=== PATIENT | female | born 1985 | race Caucasian/White ===

== ENCOUNTER 2017-06-19 20:25 | Emergency (ER) | payer OTHER ==
[2017-06-19 20:54] VITALS: BP 112/73
[2017-06-19] MEDS ORDERED: Erythromycin OPTH OINT* APPLIC OINT RIGHT EYE ONE (21:09)
--- NOTE | 2017-06-19 21:10 | UC ---
Eye Complaint HPI - HPI Summary HPI Summary: 31 yo WF c/o right upper lid x 5 days, tried warm compresses and drained some pus - History of Current Complaint Chief Complaint: UCEye Stated Complaint: EYE COMPLAINT Time Seen by Provider: 06/19/17 20:42 Hx Obtained From: Patient Hx Last Menstrual Period: 11/26/15 Onset/Duration: Lasting Days Timing: Minutes Pain Intensity: 5 Location of Injury: Eye Lid (upper) Aggravating Factor(s): Nothing Alleviating Factor(s): Nothing Associated Signs And Symptoms: Positive: Negative, Drainage (Purulent) - Allergies/Home Medications Allergies/Adverse Reactions: Allergies Allergy/AdvReac Type Severity Reaction Status Date / Time cephalexin [From Keflex] Allergy Itching Verified 06/19/17 20:55 latex Allergy Itching Verified 06/19/17 20:55 nitrofurantoin Allergy Tinnitus Verified 06/19/17 20:55 [From Macrobid] Home Medications: Home Medications Dextroamphetamine/Amphetamine [Adderall 10 mg-] 1 tab PO DAILY 06/19/17 [ History Confirmed 06/19/17] PMH/Surg Hx/FS Hx/Imm Hx Previously Healthy: Yes Other History Of: Negative For: Anticoagulant Therapy - Surgical History Surgical History: Yes Surgery Procedure, Year, and Place: nose surgery deviated septum - Family History Known Family History: Positive: None - Nothing known - "my family doesn't talk to me" Negative: Hypertension, Seizure Disorder - Social History Alcohol Use: Rare Substance Use Type: None Smoking Status (MU): Never Smoked Tobacco - Immunization History Most Recent Influenza Vaccination: 12/28/13 Most Recent Tetanus Shot: 02/22/14 Most Recent Pneumonia Vaccination: n/a Review of Systems Constitutional: Negative Skin: Negative Eyes: Other - right upper lid stye ENT: Negative Respiratory: Negative Cardiovascular: Negative Gastrointestinal: Negative Genitourinary: Negative Motor: Negative Neurovascular: Negative Musculoskeletal: Negative Neurological: Negative Psychological: Negative All Other Systems Reviewed And Are Negative: Yes Physical Exam Triage Information Reviewed: Yes Appearance: Well-Appearing Vital Signs: Initial Vital Signs Temp 36.6 C 06/19/17 20:51 Pulse 82 06/19/17 20:51 Resp 18 06/19/17 20:51 BP 112/73 06/19/17 20:51 Pulse Ox 100 06/19/17 20:51 Eye Exam: Normal ENT: Positive: Other - right upper lid internal stye Dental Exam: Normal Neck exam: Normal Neck: Positive: 1 Respiratory Exam: Normal Cardiovascular Exam: Normal Abdominal Exam: Normal Musculoskeletal Exam: Normal Neurological Exam: Normal Psychological Exam: Normal Skin Exam: Normal Eye Complaint Course/Dx - Differential Dx/Diagnosis Provider Diagnoses: right upper lid internal stye Discharge - Sign-Out/Discharge Documenting (check all that apply): Discharge - Discharge Plan Condition: Stable Disposition: HOME Prescriptions: Erythromycin OPTH OINT* [Erythromycin 0.5% OPTH OINT*] 1 applic BOTH EYES TID 7 Days #1 ophth.oint Patient Education Materials: [place] (ED) Referrals: Luis Angel Beckford MD [Primary Care Provider] - Additional Instructions: please apply antibiotic ointment to right eye three times daily x 7 days, continue warm compresses - Billing Disposition and Condition Condition: STABLE Disposition: HOME
[2017-06-20] MEDS ORDERED: Erythromycin TOPICAL GEL* 30 GM TUBE TOPICAL SCH (09:00)
== END 2017-06-19 21:18 | disposition home or self-care (01) ==
LOC: UCEAST 20:25
DX: H00.021 Hordeolum internum right upper eyelid (principal); Z88.1 Allergy status to other antibiotic agents; Z91.040 Latex allergy status
CPT/HCPCS: 99201; A9270-GY; G0463

== ENCOUNTER 2019-01-01 14:29 | Emergency (ER) | payer OTHER ==
--- NOTE | 2019-01-01 14:51 | UC ---
Abdominal Pain Female HPI - HPI Summary HPI Summary: The pt is a 33 yo female with intermittent left pelvic pain x 1 week For 6 mos has had irregular periods she stopped her BCPs over a month ago no UTI symptoms No vaginal d/c or itch no f/c no n/v/d - History of Current Complaint Chief Complaint: UCAbdominalPain Stated Complaint: LEFT SIDE PAIN Time Seen by Provider: 01/01/19 14:37 Hx Obtained From: Patient Hx Last Menstrual Period: 49 days ago Onset/Duration: Gradual Onset, Lasting Days Timing: Intermittent Episodes Lasting: - up to an hour Severity Initially: Severe - at times Pain Intensity: 4 - currently Pain Scale Used: 0-10 Numeric Location: Discrete At: LLQ Radiates: No Character: Sharp Aggravating Factor(s): Nothing Alleviating Factor(s): Nothing Associated Signs and Symptoms: Positive: Negative Female Torso: 1 - pain Allergies/Adverse Reactions: Allergies Allergy/AdvReac Type Severity Reaction Status Date / Time cephalexin [From Keflex] Allergy Itching Verified 01/01/19 14:42 clonidine Allergy Rash Verified 01/01/19 14:43 latex Allergy Itching Verified 01/01/19 14:42 nitrofurantoin Allergy Tinnitus Verified 01/01/19 14:42 [From Macrobid] Home Medications: Home Medications Dextroamphetamine/Amphetamine [Dextroamp-Amphet ER 15 mg Cap] 15 mg PO BID 01/01 [History Confirmed 01/01/19] Escitalopram Oxalate [Lexapro 10 mg] 10 mg PO DAILY 01/01/19 [History Confirmed 01/01/19] PMH/Surg Hx/FS Hx/Imm Hx Previously Healthy: Yes Other History Of: Negative For: Anticoagulant Therapy - Surgical History Surgical History: Yes Surgery Procedure, Year, and Place: nose surgery deviated septum - Family History Known Family History: Positive: None - Nothing known - "my family doesn't talk to me", Non-Contributory Negative: Hypertension, Seizure Disorder - Social History Alcohol Use: None Substance Use Type: None Smoking Status (MU): Never Smoked Tobacco - Immunization History Most Recent Influenza Vaccination: 12/28/13 Most Recent Tetanus Shot: 02/22/14 Most Recent Pneumonia Vaccination: n/a Review of Systems All Other Systems Reviewed And Are Negative: Yes Constitutional: Positive: Negative Skin: Positive: Negative Eyes: Positive: Negative ENT: Positive: Negative Respiratory: Positive: Negative Cardiovascular: Positive: Negative Gastrointestinal: Positive: Negative Genitourinary: Positive: Negative Motor: Positive: Negative Neurovascular: Positive: Negative Musculoskeletal: Positive: Negative Neurological: Positive: Negative Psychological: Positive: Negative Physical Exam Triage Information Reviewed: Yes Appearance: Well-Appearing, No Pain Distress, Well-Nourished Vital Signs: Initial Vital Signs Temp 98.7 F 01/01/19 14:36 Pulse 103 01/01/19 14:36 Resp 16 01/01/19 14:36 BP 135/89 01/01/19 14:36 Pulse Ox 100 01/01/19 14:36 Vital Signs Reviewed: Yes Eyes: Positive: Conjunctiva Clear ENT: Positive: Hearing grossly normal, Pharynx normal. Negative: Nasal congestion, Nasal drainage, Tonsillar swelling, Tonsillar exudate, Hoarse voice Neck: Positive: Supple, Nontender, No Lymphadenopathy Respiratory: Positive: Lungs clear, Normal breath sounds, No respiratory distress, No accessory muscle use Cardiovascular: Positive: RRR, No Murmur Abdomen Description: Positive: Nontender, No Organomegaly, Bruit. Negative: CVA Tenderness (R), CVA Tenderness (L) Bowel Sounds: Positive: Present Pelvic Exam: Positive: External Exam Normal, No Cerv. Motion Tender, No Masses Musculoskeletal: Positive: ROM Intact, No Edema Neurological: Positive: Alert Psychological Exam: Normal Skin Exam: Normal Diagnostics - Laboratory Lab Results: UA (-) Urine HCG + - Radiology No standard instances Radiology Interpretation Completed By: Radiologist Summary of Radiographic Findings: Single live intrauterine gestation with a crown-rump length yielding a gestational age of 6 weeks and 4 days Abd Pain Female Course/Dx - Differential Dx/Diagnosis Provider Diagnosis: First trimester Discharge ED - Sign-Out/Discharge Documenting (check all that apply): Patient Departure All imaging exams completed and their final reports reviewed: Yes - Discharge Plan Condition: Stable Disposition: HOME Patient Education Materials: (ED) Additional Instructions: you need to make a first OB appt tylenol I suggest you start taking a vit with folic acid ULTRA SOUND RESULTS :Single live intrauterine gestation with a crown-rump length yielding a gestational age of 6 weeks and 4 days - Billing Disposition and Condition Condition: STABLE Disposition: Home
[2019-01-01 17:23] VITALS: BP 107/62
[2019-01-02 12:51] LABS: Chlamydia trachomatis NAA Negative (Negative); Neisseria gonorrhoeae (GC) NAA Negative (Negative)
== END 2019-01-01 17:23 | disposition home or self-care (01) ==
LOC: UCEAST 14:29
DX: O99.89 Other specified diseases and conditions complicating pregnancy, childbirth and the puerperium (principal); R10.2 Pelvic and perineal pain; Z3A.01 Less than 8 weeks gestation of pregnancy; Z91.040 Latex allergy status; Z88.1 Allergy status to other antibiotic agents; Z88.5 Allergy status to narcotic agent
CPT/HCPCS: 76817; 81003; 84702; 87480; 87491; 87510; 87591; 87661; 99212; G0463

== ENCOUNTER 2019-02-26 15:51 | Emergency (ER) | payer BC, MEDICAID ==
[2019-02-26 17:48] LABS: Urine Appearance Clear; Urine Bilirubin Negative (Negative); Urine Blood Negative (Negative); Urine Color Straw; Urine Glucose Negative (Negative); Urine Ketones Negative (Negative); Urine Nitrite Negative (Negative); Urine Protein Negative (Negative); Urine Specific Gravity 1.004 (1.010-1.030); Urine Urobilinogen Negative (Negative)
[2019-02-26 17:54] LABS: Hematocrit 38 % (35-47); Hemoglobin 12.9 g/dL (12.0-16.0); Mean Corpuscular HGB Conc 34 g/dL (31-36); Mean Corpuscular Hemoglobin 30 pg (27-31); Mean Corpuscular Volume 87 fL (80-97); Mean Platelet Volume 7.4 fL (7.4-10.4); Platelet Count 327 10^3/uL (150-450); Red Blood Count 4.33 10^6 /uL (3.70-4.87); Red Cell Distribution Width 13 % (10-15)
[2019-02-26 18:12] LABS: Albumin 4.3 g/dL (3.2-5.2); Albumin/Globulin Ratio 1.2 (1-3); BUN/Creatinine Ratio 14.3 (8-20); Calcium 9.4 mg/dL (8.6-10.3); EGFR African American 149.9 (>60); EGFR Non-African American 123.9 (>60); Globulin 3.5 g/dL (2-4); Potassium 3.7 mmol/L (3.5-5.0); Total Bilirubin 0.5 mg/dL (0.2-1.0); Total Protein 7.8 g/dL (6.4-8.9)
--- NOTE | 2019-02-26 19:46 | ED ---
GI/ HPI - HPI Summary HPI Summary: Patient is a 33 y/o F who is currently 14 weeks and 4 days who presents to [facility] with complaints of abdominal pain. She states that earlier today, 02/26/19, she was shopping and doing a lot of bending over to reach items on shelves. While walking, she experienced onset of sharp abdominal pain. Pain is noted to be present at mid abdominal area to pelvic area. She states that she felt near syncopal and went to rest on a nearby bench. On triage, pain is rated 7/10. While laying in stretcher, she states that the pain is not significant but notes that ambulation aggravates her pain. Subjective fever is reported. Vaginal bleeding and discharge are denied. N/V are endorsed but she states that this has not been new. Diarrhea, sore throat, and cough are denied. Patient is . LNMP was 11/14/18. Due date is August 21, 2019. PSHx of nasal surgery endorsed. Tobacco, alcohol, and substance usage are all denied. Home medications and allergies are reviewed. - History of Current Complaint Chief Complaint: EDOBProblems Time Seen by Provider: 02/26/19 19:28 Stated Complaint: 14 WKS PREG CRAMPING PER PT Hx Obtained From: Patient Hx Last Menstrual Period: 49 days ago Onset/Duration: Started Hours Ago, Still Present Timing: Lasting Hours Severity: Severe Current Severity: Moderate Pain Intensity: 4 Location of Pain: Other - mid abdomen to pelvic area Associated Signs and Symptoms: Positive: Syncope - NEAR, Nausea - not acute, Vomiting - not acute, Fever - subjective, on vitals, 97.6 F, Abdominal Pain, Other: - negative - sore throat. Negative: Diarrhea, Cough Additional Signs & Symptoms: Negative: Vaginal Bleeding, Vaginal Discharge Aggravating Factor(s): Walking/Exertion - Allergy/Home Medications Allergies/Adverse Reactions: Allergies Allergy/AdvReac Type Severity Reaction Status Date / Time cephalexin [From Keflex] Allergy Itching Verified 02/26/19 15:55 clonidine Allergy Rash Verified 02/26/19 15:55 latex Allergy Itching Verified 02/26/19 15:55 nitrofurantoin Allergy Tinnitus Verified 02/26/19 15:55 [From Macrobid] PMH/Surg Hx/FS Hx/Imm Hx Endocrine/Hematology History: Denies: Hx Anticoagulant Therapy, Hx Diabetes, Hx Thyroid Disease Cardiovascular History: Denies: Hx Congestive Heart Failure, Hx Hypertension, Hx Pacemaker/ICD Respiratory History: Reports: Hx Asthma - induced by illness Denies: Hx Chronic Obstructive Pulmonary Disease (COPD) GI History: Denies: Hx Ulcer History: Denies: Hx Renal Disease Comment Only: Other Problems/Disorders - PT STATED HX 2 TO 3 YRS AGO MILD RENAL FAILURE AFTER TRAUMA Sensory History: Denies: Hx Hearing Aid Neurological History: Reports: Other Neuro Impairments/Disorders - HX OF BACK TRAUMA IN 2011, FELL DOWN STAIRS Denies: Hx Dementia, Hx Seizures Psychiatric History: Denies: Hx Panic Disorder, Hx Substance Abuse - Surgical History Surgery Procedure, Year, and Place: nose surgery deviated septum - Immunization History Date of Tetanus Vaccine: Unk Date of Influenza Vaccine: None Infectious Disease History: No Infectious Disease History: Denies: Hx Hepatitis, Hx Human Immunodeficiency Virus (HIV), Traveled Outside the [place] in Last 30 Days - Family History Known Family History: Negative: Hypertension, Seizure Disorder - Social History Alcohol Use: None Hx Substance Use: No Substance Use Type: Reports: None Hx Tobacco Use: No Smoking Status (MU): Never Smoked Tobacco Review of Systems Positive: Fever - subjective, on vitals, temp is 97.6 F Negative: Sore Throat Negative: Cough Positive: Abdominal Pain, Vomiting - not acute , Nausea - not acute . Negative : Diarrhea Genitourinary: Other - negative - vaginal bleeding Negative: discharge - vaginal Positive: Syncope - NEAR All Other Systems Reviewed And Are Negative: Yes Physical Exam - Summary Physical Exam Summary: General: Well-developed, Well-nourished female. No acute distress. HEENT: Normocephalic, Atraumatic. Eyes: Conjuctiva normal, PERRL. Oropharynx: Clear, mucous membranes moist, (-) exudates. Neck: Soft, FROM, (-) lymphadenopathy, (-) thyromegaly, (-) JVD. Cardiovascular: Normal sinus rhythm, (-) murmur. Lungs: Clear to auscultation bilaterally (-) wheezes, (-) rales, (-) rhonchi. Abdomen: Fundus is just above the pubic bone. Soft, mild suprapubic tenderness, non-distended, (-) organomegaly, normal bowel sounds. Back: (-) CVA tenderness Extremities: No edema. Skin: Warm, dry, (-) rash. Neuro: Alert and oriented x3, no focal deficits. Psychiatric: Mildly anxious appearing Triage Information Reviewed: Yes Vital Signs On Initial Exam: Initial Vitals Temp Pulse Resp BP Pulse Ox 97.6 F 88 18 135/80 100 02/26/19 15:52 02/26/19 15:52 02/26/19 15:52 02/26/19 15:52 02/26/19 15:52 Vital Signs Reviewed: Yes Procedures - Sedation Patient Received Moderate/Deep Sedation with Procedure: No Diagnostics - Vital Signs Vital Signs Temp Pulse Resp BP Pulse Ox 02/26/19 17:26 98.6 F 85 16 143/64 99 02/26/19 15:52 97.6 F 88 18 135/80 100 - Laboratory Lab Results: Lab Results 02/26/19 02/26/19 02/26/19 Range/Units 17:32 17:46 17:46 WBC 8.0 (3.5-10.8) 10^3/uL RBC 4.33 (3.70-4.87) 10^6 /uL Hgb 12.9 (12.0-16.0) g/dL Hct 38 (35-47) % MCV 87 (80-97) fL MCH 30 (27-31) pg MCHC 34 (31-36) g/dL RDW 13 (10-15) % Plt Count 327 (150-450) 10^3/uL MPV 7.4 (7.4-10.4) fL Sodium 135 (135-145) mmol/L Potassium 3.7 (3.5-5.0) mmol/L Chloride 103 (101-111) mmol/L Carbon Dioxide 26 (22-32) mmol/L Anion Gap 6 (2-11) mmol/L BUN 8 (6-24) mg/dL Creatinine 0.56 (0.51-0.95) mg/dL Est GFR ( Amer) 149.9 (>60) Est GFR (Non-Af Amer) 123.9 (>60) BUN/Creatinine Ratio 14.3 (8-20) Glucose 77 (70-100) mg/dL Calcium 9.4 (8.6-10.3) mg/dL Total Bilirubin 0.50 (0.2-1.0) mg/dL AST 12 L (13-39) U/L ALT 7 (7-52) U/L Alkaline Phosphatase 38 (34-104) U/L Total Protein 7.8 (6.4-8.9) g/dL Albumin 4.3 (3.2-5.2) g/dL Globulin 3.5 (2-4) g/dL Albumin/Globulin Ratio 1.2 (1-3) Urine Color Straw Urine Appearance Clear Urine pH 6.0 (5-9) Ur Specific [place] 1.004 L (1.010-1.030) Urine Protein Negative (Negative) Urine Ketones Negative (Negative) Urine Blood Negative (Negative) Urine Nitrate Negative (Negative) Urine Bilirubin Negative (Negative) Urine Urobilinogen Negative (Negative) Ur Leukocyte Esterase Negative (Negative) Urine Glucose Negative (Negative) Result Diagrams: 02/26/19 17:46 02/26/19 17:46 Lab Statement: Any lab studies that have been ordered have been reviewed, and results considered in the medical decision making process. - Ultrasound US Ultrasound Interpretation Completed By: Radiologist Summary of Ultrasound Findings: IMPRESSION: 1. Normal intrauterine with estimated gestational age of 14 weeks and. 3 days. 2. Normal interval growth from the comparison study. THIS REPORT WAS REVIEWED BY ED PHYSICIAN. GIGU Course/Dx - Course Course Of Treatment: 33-year-old female, at 14 weeks gestation. Patient with lower abdominal pain with walking today. No vaginal discharge or bleeding. Workup negative. Normal ultrasound. Patient feeling better, discharged home. Follow-up with [facility]. - Diagnoses Provider Diagnoses: Abdominal pain, Discharge ED - Sign-Out/Discharge Documenting (check all that apply): Patient Departure - discharge - Discharge Plan Condition: Stable Disposition: HOME Patient Education Materials: (ED), Acute Abdominal Pain (ED) Referrals: Luis Angel Beckford MD [Primary Care Provider] - Additional Instructions: PLEASE RETURN TO ED FOR ANY NEW OR WORSENING SYMPTOMS. PLEASE FOLLOW UP WITH YOUR OBGYN WITHIN THREE DAYS. - Billing Disposition and Condition Condition: STABLE Disposition: Home - Attestation Statements Document Initiated by Scribe: Yes Documenting Scribe: JASWINDER OLIVA Provider For Whom Scribe is Documenting (Include Credential): JENNIFER ASHRAF MD Scribe Attestation: JASWINDER Salcedo, scribed for JENNIFER ASHRAF MD on 02/27/19 at 0103. Scribe Documentation Reviewed: Yes Provider Attestation: The documentation as recorded by the scribe, JASWINDER OLIVA accurately reflects the service I personally performed and the decisions made by me, JENNIFER ASHRAF MD Status of Scribe Document: Viewed
[2019-02-26 21:41] VITALS: BP 118/98
== END 2019-02-26 21:40 | disposition home or self-care (01) ==
LOC: ED 15:51
DX: O26.891 Other specified pregnancy related conditions, first trimester (principal); R10.9 Unspecified abdominal pain; Z3A.14 14 weeks gestation of pregnancy; J45.909 Unspecified asthma, uncomplicated; Z88.8 Allergy status to other drugs, medicaments and biological substances; Z88.1 Allergy status to other antibiotic agents; Z91.040 Latex allergy status
CPT/HCPCS: 36415; 76815; 80053; 81003; 85027; 99282

== ENCOUNTER 2019-08-24 20:50 | Inpatient (IN) ==
[2019-08-24] MEDS ORDERED: Dinoprostone 10 MG VAG.SUPP VAGINAL ONE (21:05)
[2019-08-24] MEDS ORDERED: Lactated Ringers 1000 ml BAG 1,000 ML IV ONE (21:05)
[2019-08-24] MEDS ORDERED: Lactated Ringers 1000 ml BAG 1,000 ML IV SCH (22:00)
[2019-08-25 00:12] LABS: Urine Benzodiazepine Screen None Detected (None Detect); Urine Opiates Screen None Detected (None Detect)
[2019-08-25] MEDS: Oxytocin in LR 20 UNITS/1,000 ML BAG IVPB SCH ×2 (11:12→18:52)
[2019-08-25 12:01] LABS: ABS Eosinophils 0.1 10^3/ul (0-0.6); ABS Lymphocytes 1.8 10^3/ul (1.0-4.8); ABS Monocytes 0.5 10^3/ul (0-0.8); Eosinophil % 0.7 %; Hematocrit 34 % (35-47); Lymphocyte % 21.5 %; Mean Corpuscular HGB Conc 33 g/dL (31-36); Mean Corpuscular Hemoglobin 24 pg (27-31); Mean Corpuscular Volume 75 fL (80-97); Mean Platelet Volume 7.3 fL (7.4-10.4); Nucleated Red Blood Cells % 0.1; Platelet Count 439 10^3/uL (150-450); Red Cell Distribution Width 16 % (10-15); White Blood Count 8.6 10^3/uL (3.5-10.8)
[2019-08-25] MEDS ORDERED: Promethazine INJ(RESTRICTED) 25 MG/ML 1 ml VIAL IV ONE (13:05)
[2019-08-25] MEDS ORDERED: Morphine 10 MG/ML VIAL (1 ml) IV ONE (13:08)
[2019-08-25] MEDS ORDERED: Glycerin ADULT 2.4 gm SUPP PR PRN (16:30)
[2019-08-25] MEDS ORDERED: Dibucaine 1% OINT 28.35 GM TUBE PR PRN (16:30)
[2019-08-25] MEDS ORDERED: Witch Hazel PAD JAR TOPICAL PRN (16:30)
[2019-08-25] MEDS ORDERED: Lactated Ringers 1000 ml BAG 1,000 ML IV SCH (17:00)
[2019-08-26 07:55] LABS: Hematocrit 30 % (35-47); Mean Corpuscular HGB Conc 33 g/dL (31-36); Mean Corpuscular Hemoglobin 25 pg (27-31); Mean Corpuscular Volume 74 fL (80-97); Platelet Count 380 10^3/uL (150-450); Red Blood Count 4.03 10^6 /uL (3.70-4.87); Red Cell Distribution Width 16 % (10-15); White Blood Count 10.5 10^3/uL (3.5-10.8)
[2019-08-26 08:44] LABS: ABS Eosinophils 0.1 10^3/ul (0-0.6); ABS Lymphocytes 2.5 10^3/ul (1.0-4.8); ABS Monocytes 0.7 10^3/ul (0-0.8); Eosinophil % 0.7 %; Lymphocyte % 23.6 %
[2019-08-26 12:21] VITALS: BP 118/70
== END 2019-08-26 19:25 | disposition home or self-care (01) | DRG 560 ==
LOC: MCHOBOUT 20:50 → MCHOB 21:14
PROVIDERS: ADMIT Obstetrics & Gynecology; ATTEND Obstetrics & Gynecology

== ENCOUNTER 2019-09-27 13:58 | Inpatient (IN) ==
[2019-09-27] MEDS ORDERED: Levofloxacin 750 MG IVPREMIX 750 MG/150 ML BAG IVPB ONE (14:32)
[2019-09-27 14:48] LABS: ABS Lymphocytes 0.9 10^3/ul (1.0-4.8); Eosinophil % 0.1 %; Hematocrit 36 % (35-47); Hemoglobin 11.7 g/dL (12.0-16.0); Lymphocyte % 6.1 %; Mean Corpuscular HGB Conc 33 g/dL (31-36); Mean Corpuscular Hemoglobin 25 pg (27-31); Mean Corpuscular Volume 75 fL (80-97); Mean Platelet Volume 7.5 fL (7.4-10.4); Nucleated Red Blood Cells % 0.1; Platelet Count 327 10^3/uL (150-450); Red Blood Count 4.75 10^6 /uL (3.70-4.87); Red Cell Distribution Width 19 % (10-15); White Blood Count 14.8 10^3/uL (3.5-10.8)
[2019-09-27] MEDS ORDERED: LACTATED RINGERS IV SCH (15:00)
[2019-09-27 15:04] LABS: Albumin 4.2 g/dL (3.2-5.2); Calcium 9.4 mg/dL (8.6-10.3); Potassium 3.7 mmol/L (3.5-5.0)
[2019-09-27 15:07] LABS: Urine Appearance Cloudy; Urine Bilirubin Negative (Negative); Urine Blood 2+ (Negative); Urine Color Straw; Urine Glucose Negative (Negative); Urine Ketones Negative (Negative); Urine Nitrite Negative (Negative); Urine Protein Negative (Negative); Urine Specific Gravity 1.006 (1.010-1.030); Urine Urobilinogen Negative (Negative)
[2019-09-27 15:09] LABS: Activated Partial Thrombo Time 32.3 seconds (26.0-38.0); INR 1.13 (0.82-1.09)
[2019-09-27 15:10] LABS: Albumin/Globulin Ratio 1.2 (1-3); BUN/Creatinine Ratio 17.9 (8-20); EGFR African American 93.4 (>60); EGFR Non-African American 77.2 (>60); Globulin 3.6 g/dL (2-4); Total Protein 7.8 g/dL (6.4-8.9)
[2019-09-27 15:10] LABS: Urine Bacteria Absent (Absent); Urine Red Blood Cell Trace(0-2/hpf) (Absent); Urine Squamous Epithelial Cell Present (Absent); Urine White Blood Cell 3+(>20/hpf) (Absent)
[2019-09-27] MEDS: NS 0.9% 1000 ml BAG 1,000 ML IV SCH (18:08)
[2019-09-27 18:21] LABS: HIV 4th Generation Nonreactive (Nonreactive)
[2019-09-28] MEDS: NS 0.9% 1000 ml BAG 1,000 ML IV SCH ×2 (05:20→23:45)
[2019-09-28 05:57] LABS: ABS Basophils 0.1 10^3/ul (0-0.2); ABS Lymphocytes 1.3 10^3/ul (1.0-4.8); ABS Monocytes 1.1 10^3/ul (0-0.8); Eosinophil % 0.1 %; Hematocrit 31 % (35-47); Hemoglobin 10.3 g/dL (12.0-16.0); Lymphocyte % 8.4 %; Mean Corpuscular HGB Conc 33 g/dL (31-36); Mean Corpuscular Hemoglobin 25 pg (27-31); Mean Corpuscular Volume 75 fL (80-97); Mean Platelet Volume 7.3 fL (7.4-10.4); Platelet Count 253 10^3/uL (150-450); Red Blood Count 4.17 10^6 /uL (3.70-4.87); Red Cell Distribution Width 19 % (10-15); White Blood Count 15.8 10^3/uL (3.5-10.8)
[2019-09-28 06:18] LABS: BUN/Creatinine Ratio 13.5 (8-20); Calcium 8.5 mg/dL (8.6-10.3); EGFR African American 108.1 (>60); EGFR Non-African American 89.3 (>60); Potassium 3.9 mmol/L (3.5-5.0)
[2019-09-28] MEDS: Levofloxacin 750 MG IVPREMIX 750 MG/150 ML BAG IVPB SCH (13:51)
[2019-09-28] MEDS ORDERED: Iohexol 350 (CONTRAST) 500 ML MDV IV ONE (17:00)
[2019-09-29] MEDS: NS 0.9% 1000 ml BAG 1,000 ML IV SCH (08:36)
[2019-09-29 11:22] VITALS: BP 113/55
[2019-09-29] MEDS: Levofloxacin 750 MG IVPREMIX 750 MG/150 ML BAG IVPB SCH (12:33)
== END 2019-09-29 15:40 | disposition home or self-care (01) | DRG 720 ==
LOC: MEDTELE 13:58 → ED 13:58 → OBSVTOIN 15:43 → MEDTELE 17:28
PROVIDERS: ADMIT Internal Medicine; ATTEND Internal Medicine